=== PATIENT | female | born 1935 | race Caucasian/White ===

== ENCOUNTER 2016-07-31 16:21 | Emergency (ER) | payer MEDICARE, OTHER ==
[2016-07-31 17:03] LABS: BASOPHIL 0.3 % (0-2); EOSINOPHIL 0.7 % (0-7); HCT 42.9 % (37.0-47.0); HGB 14.6 g/dl (12.5-16.0); LYMPHOCYTE 19.7 % (15-48); MCH 31.5 pg (25.0-31.0); MCV 92.7 fL (78.0-100.0); MONOCYTE 12.8 % (0-12); MPV 9.9 fL (6.0-9.5); NEUTROPHIL 66.5 % (41-80); PLT 166 K/uL (150-400); RBC 4.63 M/uL (4.20-5.40); RDW 12.8 % (11.5-14.0); WBC 6.1 K/uL (4.0-10.5)
[2016-07-31 17:17] LABS: PTT 45.1 SECONDS (23.2-31.4)
[2016-07-31 17:27] LABS: INR 5.57 (0.9-1.2); PROTHROMBIN TIME 49.5 SECONDS (11.7-14.0)
== END 2016-07-31 18:00 | disposition home or self-care (01) ==
LOC: FER 16:21
PROVIDERS: Internal Medicine
DX: D68.9 Coagulation defect, unspecified (principal); I48.91 Unspecified atrial fibrillation; I10 Essential (primary) hypertension
CPT/HCPCS: 36415; 85025; 85610; 85730; 99283

== ENCOUNTER 2016-08-18 17:02 | Emergency (ER) | payer MEDICARE, OTHER | END 2016-08-18 18:01 | disposition home or self-care (01) | LOC: FER 17:02 | DX: S61.211A Laceration without foreign body of left index finger without damage to nail, initial encounter (principal); I10 Essential (primary) hypertension; E03.9 Hypothyroidism, unspecified; Z88.0 Allergy status to penicillin; Z88.1 Allergy status to other antibiotic agents; Z88.2 Allergy status to sulfonamides; Z88.8 Allergy status to other drugs, medicaments and biological substances; Z79.82 Long term (current) use of aspirin; Z79.899 Other long term (current) drug therapy; W45.8XXA Other foreign body or object entering through skin, initial encounter; Y92.009 Unspecified place in unspecified non-institutional (private) residence as the place of occurrence of the external cause ==

== ENCOUNTER → 2021-03-29 | Day surgery (SDC) | payer MEDICARE, OTHER ==
[~2021-03-29] VITALS: Ht 161.3 cm; Wt 50.0 kg
[~2021-03-29] MED LIST: ASPIRIN EC81 MG PO; LOPRESSOR25 MG PO; NORVASC5 MG PO; POTASSIUM CHLO20 ME2 PO; SYNTHROID50 MCG PO; TRIAMTERENE-HC1 EAC1 PO; VISION FORMULA1 EAC1 PO; WARFARIN SODIUM1 MG PO
[2021-03-29 14:02] LABS: INR 2.7 (0.9-1.2); PROTHROMBIN TIME 27.7 SECONDS (11.8-13.4)
== END | disposition home or self-care (01) ==
LOC: FAS 12:28
PROVIDERS: Anesthesiology
DX: H25.813 Combined forms of age-related cataract, bilateral (principal); H35.3131 Nonexudative age-related macular degeneration, bilateral, early dry stage; Z79.01 Long term (current) use of anticoagulants; Z79.82 Long term (current) use of aspirin
CPT/HCPCS: 36415; 85610; J2250; V2632

== ENCOUNTER → 2021-04-26 | Day surgery (SDC) | payer MEDICARE, OTHER ==
[~2021-04-26] VITALS: Ht 161.3 cm; Wt 50.0 kg
== END | disposition home or self-care (01) ==
LOC: FAS 12:53
DX: H25.811 Combined forms of age-related cataract, right eye (principal); I10 Essential (primary) hypertension; I48.91 Unspecified atrial fibrillation; Z79.82 Long term (current) use of aspirin; Z79.01 Long term (current) use of anticoagulants; Z79.899 Other long term (current) drug therapy; Z88.0 Allergy status to penicillin; Z88.8 Allergy status to other drugs, medicaments and biological substances
CPT/HCPCS: J2250; V2632